=== PATIENT | female | born 1960 | race African-American/Black ===

== ENCOUNTER 2016-04-18 11:53 | Inpatient (IN) | payer BC ==
[~2016-04-18] VITALS: Ht 170.2 cm; Wt 67.8 kg
[~2016-04-18 11:53] MED LIST: BACITRACIN 50,000 UNITS INJ IRRIG ONE; BACITRACIN OINT TOPICAL ONE; BUPIVACA/EPI 0.5% 50ML NERVEBLOCK ONE; GELATIN SPONGE 12 CM2 TOPICAL ONE; KETAMINE INJ 50 MG/ML VIAL IV ONE; LIDOCAINE 2% SYR 5 ML IV ONE; MIDAZOLAM 2 MG/2 ML INJ IV ONE; PROPOFOL 50ML PER ML IV ONE; THROMBIN 5000 UNIT KIT TOPICAL ONE
[2016-04-18] MEDS ORDERED: MAGNEVIST 15ML IV ONE (11:54)
[2016-04-18] MEDS ORDERED: METOCLOPRAMIDE 10 MG/2 ML VIAL ONE (12:43)
[2016-04-18] MEDS ORDERED: DIPHENHYDRAMINE 50 MG/ML VIAL ONE (12:43)
[2016-04-18] MEDS ORDERED: SODIUM CHLORIDE 0.9% 1,000 ML ONE (12:44)
[2016-04-18] MEDS ORDERED: PROPARACAINE 0.5% OP SOLN ONE (13:40)
[2016-04-18] MEDS ORDERED: ONDANSETRON 4 MG VIAL IV PRN (15:30)
[2016-04-18] MEDS ORDERED: SALINE FLUSH 10 ML FLUSH PRN (15:30)
[2016-04-18] MEDS ORDERED: ALU/MAG/SIM 30 ML UDC PO PRN (15:30)
[2016-04-18] MEDS ORDERED: BISACODYL EC 5 MG TAB PO PRN (15:30)
[2016-04-18] MEDS ORDERED: BISACODYL 10 MG SUPP RECTAL PRN (15:30)
[2016-04-18] MEDS ORDERED: MAG HYDROX 30 ML UDC PO PRN (15:30)
[2016-04-18] MEDS ORDERED: DEXAMETHASONE 4 MG/ML VIAL ONE (16:31)
[2016-04-18] MEDS: DEXAMETHASONE 4 MG/ML VIAL IV SCH ×2 (18:04→23:22)
[2016-04-18] MEDS: LISINOPRIL 20 MG TAB PO SCH (18:32)
[2016-04-18 18:33] VITALS: BP_SYST 138; BP_SYST 140; RESP 20; TEMP 98.3
[2016-04-18 18:38] VITALS: Ht 170.2 cm; Wt 67.8 kg
[2016-04-18 19:05] VITALS: BP_SYST 136; RESP 20; TEMP 98.6
[2016-04-18] MEDS: MORPHINE 2 MG/ML SYR IV PRN (20:52)
[2016-04-18] MEDS: SALINE FLUSH 10 ML FLUSH SCH (20:52)
[2016-04-18 22:41] VITALS: BP_SYST 126; TEMP 98.8
[2016-04-18 22:42] VITALS: RESP 20
[2016-04-18 22:43] VITALS: RESP 20
[2016-04-19] VITALS (7 sets, daily range): BP systolic 123–163; RESP 16–20; TEMP 97.5–98.3
[2016-04-19] MEDS: MORPHINE 2 MG/ML SYR IV PRN ×3 (03:25→19:24)
[2016-04-19] MEDS: SODIUM CHLORIDE 0.9% FLUSH BAG 500 ML IV SCH ×2 (05:02)
[2016-04-19] MEDS: SALINE FLUSH 10 ML FLUSH SCH ×2 (07:47→20:08)
[2016-04-19] MEDS: DEXAMETHASONE 4 MG/ML VIAL IV SCH ×2 (07:47→16:54)
[2016-04-19] MEDS: LISINOPRIL 20 MG TAB PO SCH (07:47)
[2016-04-19] MEDS: ENOXAPARIN 40 MG/0.4 ML SYR SUBQ SCH (07:48)
[2016-04-19] MEDS: NICOTINE 14 MG/24 HR TDSY TRANSDERM SCH (07:49)
[2016-04-19] MEDS: TRAZODONE 50 MG TAB PO SCH (21:36)
[2016-04-20] MEDS: DEXAMETHASONE 4 MG/ML VIAL IV SCH ×3 (01:01→17:40)
[2016-04-20 04:36] VITALS: BP_SYST 128; RESP 16; TEMP 97.4
[2016-04-20] MEDS: SODIUM CHLORIDE 0.9% FLUSH BAG 500 ML IV SCH ×2 (06:00)
[2016-04-20 07:00] VITALS: BP_SYST 130; RESP 16; TEMP 97.4
[2016-04-20] MEDS: SALINE FLUSH 10 ML FLUSH SCH ×2 (10:36→22:24)
[2016-04-20] MEDS: LISINOPRIL 20 MG TAB PO SCH (10:36)
[2016-04-20] MEDS: NICOTINE 14 MG/24 HR TDSY TRANSDERM SCH (10:37)
[2016-04-20] MEDS: ENOXAPARIN 40 MG/0.4 ML SYR SUBQ SCH (10:37)
[2016-04-20] MEDS ORDERED: BISACODYL EC 5 MG TAB PO PRN (10:40)
[2016-04-20] MEDS: ACETAMINOPHEN 325 MG TAB PO PRN (10:54)
[2016-04-20 11:00] VITALS: BP_SYST 150; RESP 16; TEMP 97.7
[2016-04-20 15:00] VITALS: BP_SYST 146; RESP 16; TEMP 97.8
[2016-04-20] MEDS: OXYCODONE/APAP 5/325 TAB PO PRN (17:43)
[2016-04-20 20:35] VITALS: BP_SYST 154; RESP 16; TEMP 97.5
[2016-04-20] MEDS: TRAZODONE 50 MG TAB PO SCH (22:24)
[2016-04-20] MEDS: ZOLPIDEM 5 MG TAB PO SCH (22:24)
[2016-04-20 22:47] VITALS: BP_SYST 139; RESP 16; TEMP 98.1
[2016-04-21] VITALS (7 sets, daily range): BP systolic 121–161; RESP 16–20; TEMP 97.4–98.2
[2016-04-21] MEDS: DEXAMETHASONE 4 MG/ML VIAL IV SCH ×4 (00:11→23:51)
[2016-04-21] MEDS: SODIUM CHLORIDE 0.9% FLUSH BAG 500 ML IV SCH ×2 (06:00)
[2016-04-21] MEDS: SALINE FLUSH 10 ML FLUSH SCH ×2 (09:29→21:51)
[2016-04-21] MEDS: LISINOPRIL 20 MG TAB PO SCH (09:29)
[2016-04-21] MEDS: NICOTINE 21 MG/24 HR TRANSDERM SCH (09:30)
[2016-04-21] MEDS: ENOXAPARIN 40 MG/0.4 ML SYR SUBQ SCH (09:30)
[2016-04-21] MEDS: OXYCODONE/APAP 5/325 TAB PO PRN (11:51)
[2016-04-21] MEDS: TRAZODONE 50 MG TAB PO SCH (21:51)
[2016-04-21] MEDS: ZOLPIDEM 5 MG TAB PO SCH (21:51)
[2016-04-22] VITALS (13 sets, daily range): BP systolic 91–153; RESP 16–25; TEMP 96.9–98.6
[2016-04-22] MEDS: SODIUM CHLORIDE 0.9% FLUSH BAG 500 ML IV SCH ×2 (05:08→05:12)
[2016-04-22] MEDS: SALINE FLUSH 10 ML FLUSH SCH ×2 (08:55→20:59)
[2016-04-22] MEDS: ENOXAPARIN 40 MG/0.4 ML SYR SUBQ SCH (08:56)
[2016-04-22] MEDS: DEXAMETHASONE 4 MG/ML VIAL IV SCH (08:56)
[2016-04-22] MEDS: NICOTINE 21 MG/24 HR TRANSDERM SCH (08:56)
[2016-04-22] MEDS: LISINOPRIL 20 MG TAB PO SCH (08:56)
[2016-04-22] MEDS ORDERED: CHLORASEPTIC 180 ML BTL PO PRN (09:55)
[2016-04-22] MEDS: DEXAMETHASONE 4 MG TAB PO SCH ×2 (16:06→23:14)
[2016-04-22] MEDS: OXYCODONE/APAP 5/325 TAB PO PRN (16:08)
[2016-04-22] MEDS: ZOLPIDEM 5 MG TAB PO SCH (21:00)
[2016-04-22] MEDS: TRAZODONE 50 MG TAB PO SCH (21:00)
[2016-04-23] MEDS: SODIUM CHLORIDE 0.9% FLUSH BAG 500 ML IV SCH ×2 (06:00)
[2016-04-23 07:27] VITALS: BP_SYST 128; RESP 16; TEMP 98
[2016-04-23] MEDS: LISINOPRIL 20 MG TAB PO SCH (07:35)
[2016-04-23] MEDS: SALINE FLUSH 10 ML FLUSH SCH ×2 (07:35→21:27)
[2016-04-23] MEDS: DEXAMETHASONE 4 MG TAB PO SCH ×3 (07:35→23:34)
[2016-04-23] MEDS: NICOTINE 21 MG/24 HR TRANSDERM SCH (07:36)
[2016-04-23] MEDS: ENOXAPARIN 40 MG/0.4 ML SYR SUBQ SCH (07:36)
[2016-04-23 09:22] VITALS: BP_SYST 119; RESP 18; TEMP 97.6
[2016-04-23] MEDS ORDERED: GLYCOPYRROLATE 0.2 MG/ML VIAL IV ONE (09:30)
[2016-04-23] MEDS ORDERED: LACT RINGERS 1,000 ML IV SCH (09:30)
[2016-04-23] MEDS ORDERED: MIDAZOLAM 2 MG/2 ML INJ IV ONE (09:30)
[2016-04-23] MEDS ORDERED: LIDOCAINE 1% BUFFERED 1 ML SYR INTRADERM PRN (09:30)
[2016-04-23 11:53] VITALS: BP_SYST 123; RESP 18; TEMP 98
[2016-04-23] MEDS: OXYCODONE/APAP 5/325 TAB PO PRN (13:19)
[2016-04-23 15:03] VITALS: BP_SYST 139; RESP 18; TEMP 98.3
[2016-04-23 19:43] VITALS: BP_SYST 130; RESP 18; TEMP 98.1
[2016-04-23] MEDS: TRAZODONE 50 MG TAB PO SCH (21:28)
[2016-04-23] MEDS: ZOLPIDEM 5 MG TAB PO SCH (21:28)
[2016-04-23 23:13] VITALS: BP_SYST 116; RESP 18; TEMP 97.4
[2016-04-24] VITALS (29 sets, daily range): BP systolic 101–170; RESP 13–23; TEMP 97.2–98.3
[2016-04-24] MEDS: SODIUM CHLORIDE 0.9% FLUSH BAG 500 ML IV SCH ×2 (05:02)
[2016-04-24] MEDS ORDERED: FENTANYL 100 MCG/2 ML AMP IV ONE (07:47)
[2016-04-24] MEDS ORDERED: GLYCOPYRROLATE 0.2 MG/ML VIAL IV ONE (07:47)
[2016-04-24] MEDS ORDERED: PROPOFOL 50ML PER ML IV ONE (07:47)
[2016-04-24] MEDS ORDERED: NEOSTIGMINE 10 MG/10 ML VIAL IV ONE (07:47)
[2016-04-24] MEDS ORDERED: LIDOCAINE 2% SYR 5 ML IV ONE (07:47)
[2016-04-24] MEDS ORDERED: DEXAMETHASONE 4 MG/ML VIAL IV ONE (07:47)
[2016-04-24] MEDS ORDERED: ONDANSETRON 4 MG VIAL IV PUSH ONE (07:47)
[2016-04-24] MEDS ORDERED: ROCURONIUM 50 MG VIAL IV ONE (07:47)
[2016-04-24] MEDS: DEXAMETHASONE 4 MG TAB PO SCH ×3 (08:01→23:59)
[2016-04-24] MEDS: SALINE FLUSH 10 ML FLUSH SCH ×2 (08:01→20:00)
[2016-04-24] MEDS: LISINOPRIL 20 MG TAB PO SCH (08:01)
[2016-04-24] MEDS: NICOTINE 21 MG/24 HR TRANSDERM SCH (08:02)
[2016-04-24] MEDS: ENOXAPARIN 40 MG/0.4 ML SYR SUBQ SCH (08:02)
[2016-04-24] MEDS ORDERED: MAGNEVIST 15ML IV ONE (10:13)
[2016-04-24] MEDS ORDERED: CEFAZOLIN 2,000 MG in SODIUM CHLORIDE 0.9% 100 ML IV ONE (11:55)
[2016-04-24] MEDS ORDERED: MIDAZOLAM 2 MG/2 ML INJ ONE (13:58)
[2016-04-24] MEDS ORDERED: MORPHINE 2 MG/ML SYR IV PRN (15:05)
[2016-04-24] MEDS ORDERED: OXYCODONE 5 MG TAB PO PRN (15:05)
[2016-04-24] MEDS ORDERED: ONDANSETRON 4 MG VIAL IV PRN (15:05)
[2016-04-24] MEDS ORDERED: DILAUDID 1 MG/ML AMP IV PRN (15:05)
[2016-04-24] MEDS ORDERED: MEPERIDINE 25 MG/ML IV PRN (15:05)
[2016-04-24] MEDS ORDERED: MORPHINE 4 MG/ML SYR IV PRN (15:05)
[2016-04-24] MEDS ORDERED: SODIUM CHLORIDE 0.9% 1,000 ML IV SCH (17:00)
[2016-04-24] MEDS ORDERED: MISSING DOSE XX ONE ×3 (17:55→23:50)
[2016-04-24] MEDS: ACETAMINOPHEN 325 MG TAB PO PRN (18:34)
[2016-04-24] MEDS: MORPHINE 4 MG/ML SYR IV PRN (19:58)
[2016-04-24] MEDS: ZOLPIDEM 5 MG TAB PO SCH (20:32)
[2016-04-24] MEDS: TRAZODONE 50 MG TAB PO SCH (20:41)
[2016-04-25] VITALS (18 sets, daily range): BP systolic 107–161; RESP 12–20; TEMP 97.7–98.4
[2016-04-25] MEDS: MORPHINE 4 MG/ML SYR IV PRN ×3 (00:01→21:05)
[2016-04-25] MEDS: SODIUM CHLORIDE 0.9% FLUSH BAG 500 ML IV SCH ×2 (05:11→05:12)
[2016-04-25] MEDS ORDERED: MAGNEVIST 15ML IV ONE (06:01)
[2016-04-25] MEDS ORDERED: SALINE FLUSH 10 ML FLUSH PRN (07:25)
[2016-04-25] MEDS ORDERED: SODIUM CHLORIDE 0.9% FLUSH BAG 500 ML IV PRN (07:25)
[2016-04-25] MEDS: SALINE FLUSH 10 ML FLUSH SCH ×4 (08:00→21:04)
[2016-04-25] MEDS: NICOTINE 21 MG/24 HR TRANSDERM SCH (08:55)
[2016-04-25] MEDS: LISINOPRIL 20 MG TAB PO SCH (08:56)
[2016-04-25] MEDS: DEXAMETHASONE 4 MG TAB PO SCH ×3 (08:56→23:43)
[2016-04-25] MEDS: ZOLPIDEM 5 MG TAB PO SCH (21:04)
[2016-04-25] MEDS: TRAZODONE 50 MG TAB PO SCH (21:04)
[2016-04-26] VITALS (8 sets, daily range): BP systolic 108–127; RESP 16–18; TEMP 97.6–98.3
[2016-04-26] MEDS: SODIUM CHLORIDE 0.9% FLUSH BAG 500 ML IV SCH ×2 (02:53→02:54)
[2016-04-26] MEDS: SALINE FLUSH 10 ML FLUSH SCH ×4 (07:30→22:30)
[2016-04-26] MEDS: LISINOPRIL 20 MG TAB PO SCH (08:06)
[2016-04-26] MEDS: DEXAMETHASONE 4 MG TAB PO SCH ×3 (08:06→23:11)
[2016-04-26] MEDS: NICOTINE 21 MG/24 HR TRANSDERM SCH (08:08)
[2016-04-26] MEDS: MORPHINE 4 MG/ML SYR IV PRN (19:19)
[2016-04-26] MEDS: TRAZODONE 50 MG TAB PO SCH (21:35)
[2016-04-26] MEDS: ZOLPIDEM 5 MG TAB PO SCH (21:35)
[2016-04-27 03:18] VITALS: BP_SYST 133; RESP 19; TEMP 97.7
[2016-04-27] MEDS: SODIUM CHLORIDE 0.9% FLUSH BAG 500 ML IV SCH ×2 (06:00)
[2016-04-27 07:58] VITALS: BP_SYST 126; TEMP 97.6
[2016-04-27 07:59] VITALS: RESP 18
[2016-04-27] MEDS: SALINE FLUSH 10 ML FLUSH SCH ×2 (08:00→08:32)
[2016-04-27] MEDS: DEXAMETHASONE 4 MG TAB PO SCH (08:31)
[2016-04-27] MEDS: LISINOPRIL 20 MG TAB PO SCH (08:31)
[2016-04-27] MEDS: NICOTINE 21 MG/24 HR TRANSDERM SCH (08:31)
[2016-04-27 11:05] VITALS: BP_SYST 127; RESP 16; TEMP 97.6
[2016-04-27 12:13] VITALS: BP_SYST 127; RESP 16; TEMP 97.6
== END 2016-04-27 14:04 | disposition home or self-care (01) | DRG 25 ==
LOC: CANRESERV → ENRESERVTM → ENRESERVDT → ER 11:53 → EMR 15:47 → ENPENDDIS 15:47 → 2NO 18:01 → 4NT 04-23 08:56 → CCU 04-24 17:41 → 3NT 04-25 11:20
PROVIDERS: ADMIT Internal Medicine; ATTEND Internal Medicine
PROC: 07B74ZX Excision of Thorax Lymphatic, Percutaneous Endoscopic Approach, Diagnostic (ICD-10-PCS; 2016-04-22)
PROC: 0B998ZX Drainage of Lingula Bronchus, Via Natural or Artificial Opening Endoscopic, Diagnostic (ICD-10-PCS; 2016-04-22)
PROC: 00B00ZZ Excision of Brain, Open Approach (ICD-10-PCS; principal; 2016-04-24 15:06)
DX: C79.31 Secondary malignant neoplasm of brain (principal); G93.6 Cerebral edema; C34.12 Malignant neoplasm of upper lobe, left bronchus or lung; C77.1 Secondary and unspecified malignant neoplasm of intrathoracic lymph nodes; F17.210 Nicotine dependence, cigarettes, uncomplicated; I10 Essential (primary) hypertension
CPT/HCPCS: 70450; 70552; 70553; 71250; 74176; 80053; 82378; 83735; 84100; 84378; 85007; 85025; 85027; 87071; 87102; 87116; 87205; 87206; 87529; 88104; 88108; 88305; 88307; 88341; 88342; 89051; 94799; 96361; 96365; 96367; 99223; 99232; 99233; 99238